=== PATIENT | female | born 1970 | race Hispanic/Latino ===

== ENCOUNTER 2019-01-06 18:46 | Emergency (ER) | payer OTHER ==
[2019-01-06 19:07] LABS: BASOPHILS % (AUTO) 1.1 % (0.0-5.0); EOSINOPHILS % (AUTO) 4.4 % (0.0-8.0); HEMATOCRIT 38.8 % (36-48); MEAN CORPUSCULAR HEMOGLOBIN 29.2 pg (27.0-33.0); MEAN CORPUSCULAR HGB CONC 33.3 g/dL (32.0-36.0); MEAN CORPUSCULAR VOLUME 87.7 fL (79-99); MONOCYTES % (AUTO) 4.4 % (3.0-13.0); NEUTROPHILS % (AUTO) 65.1 % (40.0-77.0); PLATELET COUNT (AUTO) 429 K/uL (130-400); RED BLOOD CELL COUNT(AUTO) 4.42 MIL/uL (4.00-5.50); RED CELL DISTRIBUTION WIDTH 13.4 % (11.0-15.5); WHITE BLOOD COUNT (AUTO) 9.9 K/uL (4.8-10.8)
[2019-01-06 19:08] LABS: APPEARANCE,URINE Clear (CLEAR); BILIRUBIN,URINE Negative (NEGATIVE); COLOR,URINE Yellow (YELLOW); GLUCOSE, URINE (UA) Negative (NEGATIVE); KETONES,URINE Negative (NEGATIVE); LEUKOCYTE ESTERASE ,URINE Negative (NEGATIVE); NITRATE,URINE Negative (NEGATIVE); OCCULT BLOOD,URINE Negative (NEGATIVE); PROTEIN,URINE Negative (NEGATIVE); UROBILINOGEN,URINE 0.2 mg/dL (0.2-1.0)
[2019-01-06 19:09] LABS: HCG,QUAL RESULT NEGATIVE (NEGATIVE)
[2019-01-06 19:11] LABS: AMPHET/METH SCREEN,URINE NEGATIVE (NEGATIVE); BARBITURATE SCREEN, URINE NEGATIVE (NEGATIVE); BENZODIAZEPINES SCREEN,URINE NEGATIVE (NEGATIVE); CANNABINOID SCREEN,URINE NEGATIVE (NEGATIVE); COCAINE SCREEN,URINE NEGATIVE (NEGATIVE); OPIATE SCREEN,URINE NEGATIVE (NEGATIVE); PHENCYCLIDINE SCREEN,URINE NEGATIVE (NEGATIVE)
[2019-01-06 19:17] LABS: CARBON DIOXIDE 25 mmol/L (21-32); CHLORIDE 103 mmol/L (101-111); CREATININE 0.7 mg/dL (0.5-1.5); GLOMERULAR FILTR. RATE CALC 95 mL/min (>60); GLUCOSE,RANDOM 122 mg/dL (70-105); POTASSIUM 3.9 mmol/L (3.5-5.1); SODIUM SERUM 135 mmol/L (136-145); UREA NITROGEN, BLOOD 12 mg/dL (7-18)
[2019-01-06 19:21] LABS: ALANINE AMINOTRANSFERASE 78 U/L (12-78); ALBUMIN 3.4 g/dL (3.5-5.0); ALCOHOL, BLOOD < 3 mg/dL (0-10); ASPARTATE AMINOTRANSFERASE 47 U/L (10-37); BILIRUBIN,TOTAL 0.3 mg/dL (0.2-1.0); TOTAL PROTEIN, SERUM 7.6 g/dL (6.0-8.3)
[2019-01-06 19:25] LABS: ACETAMINOPHEN < 1 mcg/mL (10-30); SALICYLATE < 2.8 mg/dL (2.8-20.0)
== END 2019-01-06 23:13 ==
LOC: EDH 18:46
DX: R45.851 Suicidal ideations (principal); R05 Cough; R00.2 Palpitations; I10 Essential (primary) hypertension; F32.9 Major depressive disorder, single episode, unspecified; F41.9 Anxiety disorder, unspecified; Z87.891 Personal history of nicotine dependence; Z88.6 Allergy status to analgesic agent; Z91.040 Latex allergy status
CPT/HCPCS: 36415; 80053; 80305; 81003; 81025; 85025; 93005; 99285; G0480 ×2; G0481

== ENCOUNTER 2022-03-21 07:46 | Day surgery (SDC) | payer MEDICARE ==
[~2022-03-21] VITALS: Ht 160 cm; Wt 128.2 kg
[~2022-03-21 07:46] MED LIST: 0.9% NACL 500ML IV.SOLN 500 ML IV SCH; ARIP2TAB20 PO; BUPR100T13 PO; HYDR-3421 PO; HYDR25TA PO; PRAZ1CAP5 PO; SERT-439 PO
[2022-03-21 08:52] VITALS: BP 132/70
[2022-03-21] MEDS ORDERED: MIDAZOLAM HCL 1 MG/ML 2ML VIAL ONE (10:10)
[2022-03-21] MEDS ORDERED: PROPOFOL 10 MG/ML 20ML VIAL IV ONE ×2 (10:10→10:52)
[2022-03-21] MEDS ORDERED: LIDOCAINE PF 100MG/5ML (2%) SYRINGE 5ML ONE (10:11)
[2022-03-21 11:25] VITALS: BP 97/38
[2022-03-21 11:52] VITALS: BP 131/63
== END 2022-03-21 12:00 | disposition home or self-care (01) ==
LOC: DAH 07:46
PROVIDERS: ATTEND Surgery
DX: K21.9 Gastro-esophageal reflux disease without esophagitis (principal); I10 Essential (primary) hypertension; F41.9 Anxiety disorder, unspecified; F32.9 Major depressive disorder, single episode, unspecified; E66.01 Morbid (severe) obesity due to excess calories; Z90.49 Acquired absence of other specified parts of digestive tract; Z88.6 Allergy status to analgesic agent; Z91.040 Latex allergy status; Z68.42 Body mass index [BMI] 45.0-49.9, adult; Z20.822 Contact with and (suspected) exposure to COVID-19
CPT/HCPCS: 71045; 87426 ×3; 93005; 43235; J2001; J2250; J2704 ×2; A4215; A4223; A4222; A4221; A4663; A4606

== ENCOUNTER → 2024-05-08 | Outpatient (CLI) | payer OTHER, MEDICARE ==
[~2024-05-08] MED LIST changes: -0.9% NACL 500ML IV.SOLN 500 ML IV SCH; -ARIP2TAB20 PO; +ARIP2TAB66 PO
[2024-05-08 22:33] VITALS: PULSE 70; RESP 14
[2024-05-08 23:00] VITALS: PULSE 68; RESP 20
[2024-05-08 23:30] VITALS: PULSE 64; RESP 18
[2024-05-09] VITALS (10 sets, daily range): PULSE 62–70; RESP 10–14
== END | disposition home or self-care (01) ==
LOC: SLP 20:39
PROVIDERS: ATTEND Physician Assistant
DX: G47.33 Obstructive sleep apnea (adult) (pediatric) (principal); I10 Essential (primary) hypertension; F41.9 Anxiety disorder, unspecified; R53.83 Other fatigue
CPT/HCPCS: 95810

== ENCOUNTER 2024-10-17 06:51 | Day surgery (SDC) | payer OTHER, MEDICARE ==
[2024-10-17] VITALS (11 sets, daily range): BP systolic 101–170; BP diastolic 51–100; PULSE 55–82; RESP 16–18; TEMP 97.4–97.7
[~2024-10-17] VITALS: Ht 160 cm; Wt 78.5 kg
[~2024-10-17 06:51] MED LIST changes: -BUPR100T13 PO; +BUPROPION PO; +CHOL200013 PO; +CYAN1TAB44 PO; +DOCU100C33 PO; +FERR-63 PO; +FLUT15.845 NS; -HYDR-3421 PO; -HYDR25TA PO; +HYDR50TA PO; +LOSA25TA41 PO; +MULT-1203 PO; -PRAZ1CAP5 PO; +PRAZ2CAP2 PO; -SERT-439 PO; +SERT-440 PO
[2024-10-17] MEDS ORDERED: HYDR-3422 PO (07:33)
[2024-10-17] MEDS ORDERED: L-LYSINE PO (07:33)
[2024-10-17] MEDS ORDERED: GING550C5 PO (07:33)
[2024-10-17] MEDS ORDERED: MORINGA PO (07:33)
[2024-10-17] MEDS: 0.9%NACL 1000ML 1,000 ML IV ONE (07:38)
[2024-10-17] MEDS ORDERED: LIDOCAINE PF 100MG/5ML (2%) SYRINGE 5ML ONE (07:41)
[2024-10-17] MEDS ORDERED: proPOFol 10 MG/ML 20ML VIAL IV ONE (07:41)
[2024-10-17] MEDS ORDERED: GLYCOPYRROLATE 0.2 MG/ML 5 ML VIAL ONE (07:42)
[2024-10-17] MEDS ORDERED: SODIUM TETRADECYL SULFATE 30 MG/ML 2 ML VIAL IV ONE (08:00)
[2024-10-17] MEDS ORDERED: ondanSETRON 4MG INJ ONE (08:51)
--- NOTE | 2024-10-17 09:54 | OP ---
Operative Note: DATE OF PROCEDURE: 10/17/24 SURGEON: LISA WILSON MD VICE PRESIDENT OF PROCUREMENT: [] ANESTHESIA: [] Mac ANESTHESIOLOGIST/PLASTICS SUPERVISOR: [] PREOPERATIVE DIAGNOSIS: [] GERD Status post gastric bypass POSTOPERATIVE DIAGNOSIS: [] The same SYNOPSIS: [] PROCEDURE: [] Upper endoscopy with sclerotherapy ESTIMATED BLOOD LOSS: [] INDICATIONS: [] DESCRIPTION OF PROCEDURE: [] With the patient in conscious sedation I inserted the endoscope through the mouth. We advanced this to the esophagus was completely normal. Z-line was at 40 cm. We entered the stomach and found a small gastric pouch. There was no pathology in the gastrojejunostomy was about 1-1/2 to 2 cm. The jejunum was completely normal. I then injected 10 cc of sclerotherapy irrigation around the gastrojejunostomy. No complication. Before retrieving the scope I suctioned all the fluid and air. Procedure was completed without any complication. LISA WILSON MD Oct 17, 2024 09:54
== END 2024-10-17 08:50 | disposition home or self-care (01) ==
LOC: DAH 06:51 → ENDO 06:51
PROVIDERS: ATTEND Surgery
DX: K21.9 Gastro-esophageal reflux disease without esophagitis (principal); R13.10 Dysphagia, unspecified; I10 Essential (primary) hypertension; Z98.84 Bariatric surgery status; Z88.6 Allergy status to analgesic agent; Z90.49 Acquired absence of other specified parts of digestive tract; E66.09 Other obesity due to excess calories; Z68.30 Body mass index [BMI] 30.0-30.9, adult; Z91.040 Latex allergy status; Z79.899 Other long term (current) drug therapy
CPT/HCPCS: 43236; 81025; J7030 ×2; J2003; J2704; J2405; J3490 ×2; A4620; A4215 ×2; A4223; A4657; A4222; A4221; A4663; A4606

== ENCOUNTER 2024-10-31 06:51 | Day surgery (SDC) | payer OTHER, MEDICARE ==
[~2024-10-31] VITALS: Ht 160 cm; Wt 79.4 kg
[2024-10-31] VITALS (10 sets, daily range): BP systolic 92–151; BP diastolic 66–78; PULSE 55–70; RESP 16–18; TEMP 97.2–97.7
[~2024-10-31 06:51] MED LIST changes: +GING550C5 PO; +HYDR-3422 PO; +L-LYSINE PO; +MORINGA PO
[2024-10-31] MEDS ORDERED: proPOFol 10 MG/ML 20ML VIAL IV ONE ×3 (07:31→09:22)
[2024-10-31] MEDS: 0.9%NACL 1000ML 1,000 ML IV ONE (07:33)
[2024-10-31] MEDS ORDERED: ERGO500093 PO (07:46)
[2024-10-31] MEDS ORDERED: SUCR1TAB2 PO (07:46)
[2024-10-31] MEDS ORDERED: BEDOYECTA PO (07:46)
[2024-10-31] MEDS ORDERED: PHEN-615 PO (07:46)
[2024-10-31] MEDS ORDERED: COLLAGEN PO (07:46)
--- NOTE | 2024-10-31 13:35 | OP ---
Operative Note: DATE OF PROCEDURE: 10/31/24 SURGEON: LISA WILSON MD JAW SKINNER: [] ANESTHESIA: [] Mac ANESTHESIOLOGIST/VP HR DIVERSITY: [] PREOPERATIVE DIAGNOSIS: [] Screening colonoscopy POSTOPERATIVE DIAGNOSIS: [] Normal colonoscopy SYNOPSIS: [] PROCEDURE: [] ESTIMATED BLOOD LOSS: [] INDICATIONS: [] Previous polyps DESCRIPTION OF PROCEDURE: [] With the patient in conscious sedation I did a rectal exam. Rectal exam was completely normal and prostate was normal. I inserted the scope in usual fashion and advanced it visualized in the colon. I insufflated with air and the preparation was good. I was able to reach the ascending colon. After multiple attempts to find the cecum and I was unable to do that and I decided it was safer to withdrawal the colonoscopy.I retrieved the scope slowly carefully seen the whole colon. No pathology was seen. Procedure was completed without any complication. I will give a recommendation to repeat the colonoscopy in three years LISA WILSON MD Oct 31, 2024 13:34
== END 2024-10-31 11:00 | disposition home or self-care (01) ==
LOC: ENDO 06:51 → DAH 06:51 → ENDO 11:00
PROVIDERS: ATTEND Surgery
DX: Z12.11 Encounter for screening for malignant neoplasm of colon (principal); K63.5 Polyp of colon; I10 Essential (primary) hypertension; Z86.0100 Personal history of colon polyps, unspecified; Z90.49 Acquired absence of other specified parts of digestive tract; Z98.84 Bariatric surgery status; Z88.6 Allergy status to analgesic agent; Z91.040 Latex allergy status; Z79.899 Other long term (current) drug therapy
CPT/HCPCS: 00812; 84703; 36415; G0105; J7030; J2704 ×2; A4620; A4215 ×2; A4223; A4222; A4221; A4663; A4606; 45378; J3490

== ENCOUNTER → 2025-06-19 | Outpatient (CLI) | payer OTHER, MEDICAID ==
[~2025-06-19] MED LIST changes: +CETI10TA57 PO; -CHOL200013 PO; +COLLAGEN PO; -CYAN1TAB44 PO; -FLUT15.845 NS; -GING550C5 PO; -HYDR50TA PO; +PANT40TA54 PO; +PHEN37.599 PO; +PRAZ1CAP5 PO; +SUCR1TAB2 PO; +[UNRECOGNIZED DRUG - CODE] PO
--- NOTE | 2025-06-21 11:28 | HMCIMG ---
DOUBLE CONTRAST UPPER GI SERIES: CLINICAL HISTORY: Heartburn Finding: The study was performed using provocative maneuvers After swallowing effervescent crystal and thick barium, there is no definite intrinsic or extrinsic lesion seen in the esophagus. There is a small size hiatal hernia with grade 1 esophageal reflux. The stomach demonstrate partial gastrectomy with patent anastomosis. Fluoroscopy time: 2 minutes IMPRESSION: Esophagus appears to be normal Small hiatal hernia with grade 1 esophageal reflux Gastrectomy with patent anastomosis with the small gastric pouch.
== END | disposition home or self-care (01) ==
LOC: RAH 09:35
PROVIDERS: ATTEND Surgery
DX: K21.9 Gastro-esophageal reflux disease without esophagitis (principal); K44.9 Diaphragmatic hernia without obstruction or gangrene; R10.9 Unspecified abdominal pain
CPT/HCPCS: 74240